=== PATIENT | female | born 1985 | race Caucasian/White ===

== ENCOUNTER 2019-05-24 08:47 | Outpatient (CLI) | payer OTHER ==
[~2019-05-24 08:47] MED LIST: HUMALOG MIX 75/10 ML; LANTUS100 U/ML; PRED-G 1% EYE DR5 ML
== END 2019-05-24 09:10 | disposition home or self-care (01) ==
LOC: LAB 08:47
DX: E10.65 Type 1 diabetes mellitus with hyperglycemia (principal); E78.2 Mixed hyperlipidemia

== ENCOUNTER 2025-03-02 11:02 | Emergency (ER) | payer OTHER ==
[~2025-03-02] VITALS: Ht 170.2 cm; Wt 68.0 kg
[2025-03-02] MEDS ORDERED: ATORVASTATIN CA10 MG PO (11:44)
[2025-03-02] MEDS ORDERED: AVAPRO300 MG PO (11:44)
[2025-03-02] MEDS ORDERED: HUMALOG100 UNIT/2 PERIFERAL (11:45)
[2025-03-02] MEDS ORDERED: TRI-SPRINTEC T1 EACH PO (11:45)
[2025-03-02] MEDS ORDERED: METHYLPREDNISOLONE SOD SUCC 125 MG VIAL IV ONE (12:15)
[2025-03-02] MEDS ORDERED: DIPHENHYDRAMINE HCL 50 MG/ML VIAL 1ML IV ONE (12:15)
[2025-03-02] MEDS ORDERED: PIPERACILLIN/TAZOBACTAM SODIUM 3.375 GM VIAL IV ONE (12:15)
[2025-03-02] MEDS ORDERED: INSULIN REGULAR, HUMAN 1,000 UNIT/10 ML UNITS IV ONE (12:15)
[2025-03-02] MEDS ORDERED: 0.9 % SODIUM CHLORIDE 1,000 ML IV ONE (12:15)
[2025-03-02 13:35] LABS: URINE APPEARANCE Clear; URINE BILIRRUBIN Negative (NEGATIVE); URINE BLOOD Negative; URINE COLOR Yellow; URINE KETONE 15 (NEGATIVE); URINE LEUKOCYTE Negative; URINE NITRATE Negative; URINE PROTEIN Negative (NEGATIVE); URINE UROBILINOGEN 0.2 E.U./dl
[2025-03-02 13:36] LABS: URINE BACTERIA 118.6 uL (0.0-1933); URINE EPITHELIAL CELLS 5.2 uL (0.0-38.8); URINE RBC 7.4 uL (0.0-20.8); URINE WBC 2.7 uL (0.0-23.2)
[2025-03-02 13:41] LABS: BASO % 0.8 % (0.1-1.2); EOS # 0.45 (0.04-0.54); EOS % 5.1 % (0.7-7.0); LYMPH # 1.74 (1.18-3.74); LYMPH % 19.6 % (19.3-53.1); MEAN PLATELET VOLUME 10.40 fl (9.4-12.4); MONO # 0.35 (0.24-0.82); MONO % 3.9 % (4.7-12.5); NEUT # 6.23 (1.56-6.13); NEUT % 70.3 % (34.0-71.1); RED CELL DISTRIBUTION WIDTH 13.0 % (11.6-14.4)
[2025-03-02 13:44] LABS: ERYTHROCYTE SEDIMENTATION RATE 58 mm/hr (0-20)
[2025-03-02 13:52] LABS: URINE CAST 0.00 uL (0.0-1.40); URINE GLUCOSE 250 MG/DL (NEGATIVE)
[2025-03-02 14:05] LABS: INR < 0.93
[2025-03-02 14:51] LABS: ALT/SGPT 17 U/L (12-78); AST/SGOT 17 U/L (15-37); BILIRUBIN TOTAL 0.69 mg/dL (0.3-1.2); BUN CREA RATIO 12 (7.0-25.0); CREATININE SERUM 0.74 mg/dL (0.55-1.02); GFR 86.49; GLOBULINA 4.6 G/DL (2.4-3.5)
[2025-03-02 14:52] LABS: GLUCOSE FASTING 257 mg/dL (65-100); HCG QUANTITATIVE < 1 mUI/mL (1-3); OSMOLALITY SERUM 279 MOSM/KG (275-295)
[2025-03-02] MEDS ORDERED: PEPCID AC20 MG PO (15:02)
[2025-03-02] MEDS ORDERED: CEFUROXIME500 MG PO (15:02)
== END 2025-03-02 19:49 | disposition home or self-care (01) ==
LOC: ER 11:43
PROVIDERS: General Practice
DX: M79.673 Pain in unspecified foot (principal); T63.441A Toxic effect of venom of bees, accidental (unintentional), initial encounter; Y92.89 Other specified places as the place of occurrence of the external cause; E11.65 Type 2 diabetes mellitus with hyperglycemia; Z79.4 Long term (current) use of insulin; J45.909 Unspecified asthma, uncomplicated; I10 Essential (primary) hypertension; F41.8 Other specified anxiety disorders

== ENCOUNTER 2025-07-19 19:47 | Emergency (ER) | payer OTHER ==
[~2025-07-19] VITALS: Ht 170.2 cm; Wt 72.6 kg
[~2025-07-19 19:47] MED LIST changes: +ATORVASTATIN CA10 MG PO; +AVAPRO300 MG PO; +CEFUROXIME500 MG PO; +HUMALOG100 UNIT/2 PERIFERAL; +PEPCID AC20 MG PO; +TRI-SPRINTEC T1 EACH PO
[2025-07-19 19:59] VITALS: BP 184/96; O2SAT 99
[2025-07-19] MEDS ORDERED: DEXAMETHASONE SODIUM PHOSPHATE 4 MG/ML VIAL IM ONE (22:15)
[2025-07-19] MEDS ORDERED: 0.9 % SODIUM CHLORIDE 500 ML IV SCH (22:15)
[2025-07-19] MEDS ORDERED: KETOROLAC TROMETHAMINE 30 MG VIAL IV ONE (22:15)
[2025-07-19] MEDS ORDERED: ONDANSETRON HCL 2 MG/ML VIAL IV ONE (22:15)
[2025-07-19] MEDS ORDERED: DIPHENHYDRAMINE HCL 50 MG/ML VIAL 1ML IV ONE (22:15)
[2025-07-19] MEDS ORDERED: 0.9 % SODIUM CHLORIDE 500 ML IV ONE (22:15)
[2025-07-19] MEDS ORDERED: FAMOTIDINE/PF 20 MG/2 ML VIAL IV ONE (22:15)
[2025-07-19] MEDS ORDERED: ENALAPRILAT DIHYDRATE 1.25 MG/ML VIAL IV ONE (22:15)
[2025-07-19] MEDS ORDERED: DIPHENHYDRAMINE HCL 50 MG/ML VIAL 1ML ONE (22:21)
[2025-07-19] MEDS ORDERED: KETOROLAC TROMETHAMINE 30 MG VIAL ONE (22:21)
[2025-07-19] MEDS ORDERED: ONDANSETRON HCL 2 MG/ML VIAL ONE (22:21)
[2025-07-19] MEDS ORDERED: DEXAMETHASONE SODIUM PHOSPHATE 4 MG/ML VIAL ONE (22:22)
[2025-07-19] MEDS ORDERED: FAMOTIDINE/PF 20 MG/2 ML VIAL ONE (22:22)
[2025-07-20 02:17] LABS: BASO % 0.5 % (0.1-1.2); EOS # 0.02 (0.04-0.54); EOS % 0.2 % (0.7-7.0); LYMPH # 0.57 (1.18-3.74); LYMPH % 6.7 % (19.3-53.1); MEAN PLATELET VOLUME 10.00 fl (9.4-12.4); MONO # 0.06 (0.24-0.82); MONO % 0.7 % (4.7-12.5); NEUT # 7.82 (1.56-6.13); NEUT % 91.8 % (34.0-71.1); RED CELL DISTRIBUTION WIDTH 12.3 % (11.6-14.4)
[2025-07-20 02:39] LABS: ERYTHROCYTE SEDIMENTATION RATE 22 mm/hr (0-20)
[2025-07-20 03:05] LABS: ALT/SGPT 16.0 U/L (12-78); AST/SGOT 16.0 U/L (15-37); BILIRUBIN TOTAL 0.47 mg/dL (0.3-1.2); BUN CREA RATIO 14.0 (7.0-25.0); CREATININE SERUM 0.72 mg/dL (0.55-1.02); GFR 89.26; GLOBULINA 4.7 G/DL (2.4-3.5)
[2025-07-20 03:11] LABS: GLUCOSE FASTING 237.0 mg/dL (65-100); OSMOLALITY SERUM 279.0 MOSM/KG (275-295)
[2025-07-20] MEDS ORDERED: DOLOGESIC 500-1 EACH PO (03:33)
== END 2025-07-20 03:44 ==
LOC: ER 19:47
DX: G43.909 Migraine, unspecified, not intractable, without status migrainosus (principal); E11.9 Type 2 diabetes mellitus without complications; Z79.84 Long term (current) use of oral hypoglycemic drugs; I10 Essential (primary) hypertension; R10.13 Epigastric pain